=== PATIENT | female | born 1985 | race American Indian/Alaskan Native ===

== ENCOUNTER 2018-04-28 17:51 | Emergency (ER) | payer MEDICAID ==
--- NOTE | 2018-04-28 22:22 | Emergency Department Report ---
ED ENT HPI - General Chief complaint: Earache Stated complaint: BODY ACHE Time Seen by Provider: 04/28/18 22:13 Source: patient Mode of arrival: Ambulatory Limitations: No Limitations - History of Present Illness Initial comments: Patient 32-year-old female presents with left ear pain cough congestion 4 days history of asthma pain is 4/10 and aching secondary complaint of sore throat congestion postnasal drip . Consent was 2 weeks and no relieving or exacerbating factors patient has no idea of MAXIMUM TEMPERATURE no fever noted and triage today MD complaint: sore throat, ear pain Onset/Timin -: week(s) Location: L ear, throat Severity: moderate Severity scale (0 -10): 4 Quality: aching, sharp Improves with: none Worsens with: swallowing, movement (with) Associated Symptoms: fever, cough, pain with swallowing, sore throat, rhinorrhea - Related Data Previous Rx's Medication Instructions Recorded Last Taken Type Azithromycin [Zithromax Z-KIRAN] 250 mg PO DAILY #6 tablet 09/24/14 Unknown Rx Ibuprofen [Motrin] 600 mg PO Q8H PRN #30 tablet 09/24/14 Unknown Rx Ondansetron [Zofran Odt] 4 mg PO Q6H #7 tab.rapdis 09/24/14 Unknown Rx Prednisone [Prednisone 10 mg 10 mg PO .TAPER #1 tab.ds.pk 09/24/14 Unknown Rx (6-Day Pack, 21 Tabs)] Promethazine /Codeine 5 ml PO Q6H PRN #120 ml 09/24/14 Unknown Rx [Phenergan/Codeine 6.25-10 mg/5 ml] Amoxicillin/Potassium Clav 1 each PO BID 10 Days #20 tablet 04/28/18 Unknown Rx [Augmentin 875-125 Tablet] Benzocaine/Menth/Cetylpyrd 1 each MM Q2H PRN #3 packet 04/28/18 Unknown Rx [Cepacol X Strength] Ibuprofen 800 mg PO TID PRN #30 tablet 04/28/18 Unknown Rx Allergies Allergy/AdvReac Type Severity Reaction Status Date / Time No Known Allergies Allergy Verified 09/24/14 13:07 ED Dental HPI - General Chief complaint: Earache Stated complaint: BODY ACHE Time Seen by Provider: 04/28/18 22:13 Source: patient Mode of arrival: Ambulatory Limitations: No Limitations - Related Data Previous Rx's Medication Instructions Recorded Last Taken Type Azithromycin [Zithromax Z-KIRAN] 250 mg PO DAILY #6 tablet 09/24/14 Unknown Rx Ibuprofen [Motrin] 600 mg PO Q8H PRN #30 tablet 09/24/14 Unknown Rx Ondansetron [Zofran Odt] 4 mg PO Q6H #7 tab.rapdis 09/24/14 Unknown Rx Prednisone [Prednisone 10 mg 10 mg PO .TAPER #1 tab.ds.pk 09/24/14 Unknown Rx (6-Day Pack, 21 Tabs)] Promethazine /Codeine 5 ml PO Q6H PRN #120 ml 09/24/14 Unknown Rx [Phenergan/Codeine 6.25-10 mg/5 ml] Amoxicillin/Potassium Clav 1 each PO BID 10 Days #20 tablet 04/28/18 Unknown Rx [Augmentin 875-125 Tablet] Benzocaine/Menth/Cetylpyrd 1 each MM Q2H PRN #3 packet 04/28/18 Unknown Rx [Cepacol X Strength] Ibuprofen 800 mg PO TID PRN #30 tablet 04/28/18 Unknown Rx Allergies Allergy/AdvReac Type Severity Reaction Status Date / Time No Known Allergies Allergy Verified 09/24/14 13:07 ED Review of Systems ROS: Stated complaint: BODY ACHE Other details as noted in HPI Constitutional: fever Eyes: denies: eye pain, eye discharge, vision change ENT: ear pain, throat pain, congestion Respiratory: cough. denies: shortness of breath, SOB with exertion, wheezing Cardiovascular: denies: chest pain, palpitations, paroxysmal nocturnal dyspnea Endocrine: no symptoms reported Gastrointestinal: denies: abdominal pain, nausea, diarrhea Genitourinary: denies: urgency, dysuria, discharge Musculoskeletal: denies: back pain, joint swelling, arthralgia Skin: denies: rash, lesions Neurological: denies: headache, weakness, paresthesias Psychiatric: denies: anxiety, depression Hematological/Lymphatic: denies: easy bleeding, easy bruising ED Past Medical Hx - Past Medical History Previous Medical History?: No - Surgical History Additional Surgical History: X 3. LEFT EYE SURGERY/ARTIFICIAL EYE - Social History Smoking Status: Current Every Day Smoker Substance Use Type: Alcohol - Medications Home Medications: Home Medications Medication Instructions Recorded Confirmed Last Taken Type Azithromycin [Zithromax Z-KIRAN] 250 mg PO DAILY #6 tablet 09/24/14 Unknown Rx Ibuprofen [Motrin] 600 mg PO Q8H PRN #30 tablet 09/24/14 Unknown Rx Ondansetron [Zofran Odt] 4 mg PO Q6H #7 tab.rapdis 09/24/14 Unknown Rx Prednisone [Prednisone 10 mg 10 mg PO .TAPER #1 tab.ds.pk 09/24/14 Unknown Rx (6-Day Pack, 21 Tabs)] Promethazine /Codeine 5 ml PO Q6H PRN #120 ml 09/24/14 Unknown Rx [Phenergan/Codeine 6.25-10 mg/5 ml] Amoxicillin/Potassium Clav 1 each PO BID 10 Days #20 tablet 04/28/18 Unknown Rx [Augmentin 875-125 Tablet] Benzocaine/Menth/Cetylpyrd 1 each MM Q2H PRN #3 packet 04/28/18 Unknown Rx [Cepacol X Strength] Ibuprofen 800 mg PO TID PRN #30 tablet 04/28/18 Unknown Rx ED Physical Exam - General Limitations: No Limitations General appearance: alert, in no apparent distress - Head Head exam: Present: atraumatic, normocephalic - Eye Eye exam: Present: normal appearance, PERRL, EOMI Pupils: Present: normal accommodation - Expanded ENT Exam Expanded Ear exam: Present: normal external inspection (I) TM/Canal exam: Erythema: Right TM, Left TM, Effusion: Left TM, Canal Tenderness : Left TM (review showed) Mouth exam: Present: normal external inspection (is) Throat exam: Positive: tonsillar erythema, tonsillomegaly. Negative: tonsillar exudate (inversion), R peritonsillar mass, L peritonsillar mass - Neck Neck exam: Present: normal inspection, full ROM, lymphadenopathy. Absent: tenderness, meningismus, thyromegaly - Respiratory Respiratory exam: Present: normal lung sounds bilaterally. Absent: respiratory distress, wheezes, stridor, chest wall tenderness - Cardiovascular Cardiovascular Exam: Present: regular rate (man also right), normal rhythm, normal heart sounds. Absent: systolic murmur, diastolic murmur, rubs, gallop - GI/Abdominal GI/Abdominal exam: Present: soft (YO), normal bowel sounds - Rectal Rectal exam: Present: deferred - Extremities Exam Extremities exam: Present: normal inspection - Back Exam Back exam: Present: normal inspection - Neurological Exam Neurological exam: Present: alert, oriented X3 - Psychiatric Psychiatric exam: Present: normal affect, normal mood - Skin Skin exam: Present: warm, dry, intact, normal color. Absent: rash ED Course Vital Signs 04/28/18 18:16 Temperature 98.2 F Pulse Rate 89 Respiratory 18 Rate Blood Pressure 135/100 O2 Sat by Pulse 100 Oximetry ED Medical Decision Making - Medical Decision Making This is AOM for URI is no wrist or distress symptoms of asthma exacerbation noted at this time, Augmentin and Ibuprofen and Cepacol Lozenges patient will follow with PCP in 2-3 days patient has 1/2 albuterol inhaler will refill same Critical care attestation.: If time is entered above; I have spent that time in minutes in the direct care of this critically ill patient, excluding procedure time. ED Disposition Clinical Impression: URI, acute AOM (acute otitis media) Qualifiers: Otitis media type: serous Laterality: left Recurrence: not specified as recurrent Qualified Code(s): H65.02 - Acute serous otitis media, left ear Pharyngitis Qualifiers: Pharyngitis/tonsillitis etiology: unspecified etiology Qualified Code(s): J02.9 - Acute pharyngitis, unspecified Disposition: - TO HOME OR SELFCARE Is pt being admited?: No Does the pt Need Aspirin: No Condition: Good Instructions: Otitis Media (ED), Upper Respiratory Infection (ED) Prescriptions: Amoxicillin/Potassium Clav [Augmentin 875-125 Tablet] 1 each PO BID 10 Days #20 tablet Benzocaine/Menth/Cetylpyrd [Cepacol X Strength] 1 each MM Q2H PRN #3 packet PRN Reason: Throat Pain Ibuprofen 800 mg PO TID PRN #30 tablet PRN Reason: pain fever Referrals: PRIMARY CARE,MD [Primary Care Provider] - 3-5 Days Forms: Work/School Release Form(ED) Time of Disposition: 22:36
[2018-04-28 22:48] VITALS: BP 148/89
== END 2018-04-28 22:49 | disposition home or self-care (01) ==
LOC: ED 17:51
DX: H65.02 Acute serous otitis media, left ear (principal); J02.9 Acute pharyngitis, unspecified; J06.9 Acute upper respiratory infection, unspecified; F17.200 Nicotine dependence, unspecified, uncomplicated
CPT/HCPCS: 99282